=== PATIENT | female | born 1960 ===

== ENCOUNTER 2021-10-08 09:51 | Outpatient (RCR) | payer BC, SELFPAY | END 2021-10-08 11:20 | disposition home or self-care (01) | LOC: RPT 09:51 | PROVIDERS: ATTENDING PHYSICIAN Physician Assistant; PRIMARYCARE PHYSICIAN Internal Medicine | DX: R15.9 Full incontinence of feces (principal); R53.1 Weakness; Z73.6 Limitation of activities due to disability; K62.3 Rectal prolapse; R39.198 Other difficulties with micturition | CPT/HCPCS: 97112 ==